=== PATIENT | female | born 1955 | race Caucasian/White ===

== ENCOUNTER 2019-04-27 16:10 | Emergency (ER) | payer OTHER ==
[~2019-04-27] VITALS: Ht 165.1 cm; Wt 74.4 kg
[2019-04-27 16:57] VITALS: BP 118/79
== END 2019-04-27 19:01 | disposition home or self-care (01) ==
LOC: ER 16:15
DX: H10.89 Other conjunctivitis (principal); Z60.2 Problems related to living alone

== ENCOUNTER 2021-01-01 21:49 | Emergency (ER) | payer MEDICAID, OTHER ==
[~2021-01-01] VITALS: Ht 165.1 cm; Wt 73.0 kg
[2021-01-01 22:07] VITALS: BP 135/82
[2021-01-01] MEDS ORDERED: TDAP [DIPH/PERTUSSIS/TET] 0.5 ML VIAL IM ONE ×2 (22:30→23:14)
[2021-01-01] MEDS ORDERED: CLIN300C12 PO (23:14)
[2021-01-01] MEDS ORDERED: NAPR-1009 PO (23:14)
[2021-01-01] MEDS ORDERED: CLINDAMYCIN HCL 150 MG CAPSULE PO ONE ×2 (23:27→23:30)
== END 2021-01-01 23:39 | disposition home or self-care (01) ==
LOC: ER 21:54
DX: S59.901A Unspecified injury of right elbow, initial encounter (principal); L03.113 Cellulitis of right upper limb; Z60.2 Problems related to living alone; Z79.899 Other long term (current) drug therapy; W01.0XXA Fall on same level from slipping, tripping and stumbling without subsequent striking against object, initial encounter; Y93.89 Activity, other specified; Y92.89 Other specified places as the place of occurrence of the external cause; Y99.8 Other external cause status
CPT/HCPCS: 73080-TC; 90715

== ENCOUNTER 2025-04-17 22:58 | Emergency (ER) | payer MEDICARE, OTHER ==
[~2025-04-17 22:58] MED LIST: CLIN300C12 PO; NAPR-1009 PO
== END 2025-04-17 23:58 | disposition left against medical advice (07) ==
LOC: ER 23:03
DX: H53.8 Other visual disturbances (principal); Z53.21 Procedure and treatment not carried out due to patient leaving prior to being seen by health care provider